=== PATIENT | female | born 1965 | race Caucasian/White ===

== ENCOUNTER 2022-12-30 09:11 | Outpatient (CLI) | payer BC | END 2022-12-30 09:12 | disposition home or self-care (01) | LOC: ULT 09:11 | PROVIDERS: ATTEND Registered Nurse | DX: M79.605 Pain in left leg (principal); M79.604 Pain in right leg | CPT/HCPCS: 93970 ==

== ENCOUNTER 2023-01-02 07:41 | Outpatient (CLI) | payer BC | END 2023-01-02 07:42 | disposition home or self-care (01) | LOC: BICCT 07:41 | PROVIDERS: ATTEND Thoracic Surgery (Cardiothoracic Vascular Surgery) | DX: I70.213 Atherosclerosis of native arteries of extremities with intermittent claudication, bilateral legs (principal); I70.1 Atherosclerosis of renal artery | CPT/HCPCS: 75635; 82565 ==

== ENCOUNTER 2023-02-03 09:48 | Outpatient (CLI) | payer BC ==
[2023-02-03 11:29] LABS: Mean Corpuscular HGB CONC 32.4 g/dL (32.0-36.0); Mean Corpuscular Hemoglobin 28.5 pg (27.0-33.0); Mean Corpuscular Volume 87.8 fl (81.6-98.3); Mean Platelet Volume 10.6 fl (7.4-10.4); Platelet Count 372 10x3/uL (150-450); RBC Distribution Width 13.4 % (11.5-14.5); Red Blood Cell (RBC) Count 4.92 10x6/uL (3.90-5.03); White Blood Cell (WBC) Count 8.8 10x3/uL (3.5-10.5)
[2023-02-03 11:36] LABS: Anion Gap 17 mmol/L (10-20); BUN (Urea Nitrogen) 13 mg/dL (9.8-20.1); Calc. Creatinine Clearance 0 mL/min (70-130); Carbon Dioxide 25 mmol/L (22-29); Chloride 102 mmol/L (98-107); Potassium 4.7 mmol/L (3.5-5.1); Sodium 139 mmol/L (136-145)
[2023-02-03 11:37] LABS: Calcium 9.7 mg/dL (7.8-10.44); Estimated GFR 98; Glucose 140 mg/dL (70-105)
== END 2023-02-03 09:49 | disposition home or self-care (01) ==
LOC: LABBT 09:48
PROVIDERS: ATTEND Thoracic Surgery (Cardiothoracic Vascular Surgery)
DX: Z01.818 Encounter for other preprocedural examination (principal); I73.9 Peripheral vascular disease, unspecified
CPT/HCPCS: 80048; 85027; 93005; 93010

== ENCOUNTER 2023-02-04 05:59 | Day surgery (SDC) | payer BC ==
[2023-02-03 10:44] VITALS: BMI 23.8
[2023-02-04] MEDS ORDERED: Midazolam HCl 2 mg/2 ml Vial ONE (06:20)
[2023-02-04] MEDS ORDERED: fentaNYL 50 mcg/mL 1 mL Vial ONE (06:21)
[2023-02-04] MEDS ORDERED: Heparin 10,000 UNITS/ 10 ML VIAL ONE (06:21)
[2023-02-04] MEDS ORDERED: Lidocaine 1% (PF) 30 ML VIAL ONE (06:21)
[2023-02-04] MEDS ORDERED: Protamine Sulfate 50 MG/5 ML VIAL ONE (07:54)
[2023-02-04] MEDS ORDERED: Iopamidol 370 76% 100 ML VIAL ONE (08:57)
[2023-02-04] MEDS ORDERED: Clopidogrel Bisulfate 300 MG TAB ONE (09:43)
== END 2023-02-04 14:08 | disposition home or self-care (01) ==
LOC: SDC 05:59
PROVIDERS: ATTEND Thoracic Surgery (Cardiothoracic Vascular Surgery)
PROC: 047L3ZZ Dilation of Left Femoral Artery, Percutaneous Approach (ICD-10-PCS; principal; 2023-02-04)
DX: E11.51 Type 2 diabetes mellitus with diabetic peripheral angiopathy without gangrene (principal); I70.213 Atherosclerosis of native arteries of extremities with intermittent claudication, bilateral legs; F17.210 Nicotine dependence, cigarettes, uncomplicated; E78.5 Hyperlipidemia, unspecified; Z79.82 Long term (current) use of aspirin; Z79.84 Long term (current) use of oral hypoglycemic drugs; Z79.899 Other long term (current) drug therapy
CPT/HCPCS: 36246; 37224; 37246; 75710; 75736; 75774; 85347; 99152; 99153; C1725; C1769; C1887; J1644; J2001; J2250; J2720; J3010; Q9967